=== PATIENT | female | born 1985 | race Caucasian/White ===

== ENCOUNTER 2020-03-10 12:52 | Emergency (ER) | payer OTHER ==
[2020-03-10 13:00] VITALS: TEMP 98; BMI 27.1
--- NOTE | 2020-03-10 13:07 | PDOC ---
History of Present Illness <Emma Swan - Last Filed: 03/10/20 16:38> - History of Present Illness Initial Comments: 03/10/20 13:22 34 F with no PMH BIBA for chest pain. Chest pain was suddenly , happened 1 hour ago, non exertional, no N/V/D. Pain localized around the midsterum , radiating to the right shoulder and right neck area. Pain is constant and dull . Chest pain is not worse with positional. Pain is not ple She endorses SOB, frontal headache, dizziness, denies fever, chills, N/V/D, hx of blood clot, unilat leg swelling. She has an IUD. PMHX: as in HPI PSHX: none Meds: none Allergies: none Tob: denies Etoh: denies Rec drugs: denies PCP: none Rating Examiner: benigno BUCHANAN GENERAL/CONSTITUTIONAL: No fever or chills. No weakness. HEAD, EYES, EARS, NOSE AND THROAT: No change in vision. No ear pain or discharge. No sore throat. CARDIOVASCULAR: + chest pain and shortness of breath RESPIRATORY: No cough, wheezing, or hemoptysis. GASTROINTESTINAL: No nausea, vomiting, diarrhea or constipation. GENITOURINARY: No dysuria, frequency, or change in urination. MUSCULOSKELETAL: +muscle pain. +neck ,back pain. SKIN: No rash NEUROLOGIC: +headache, +lightheadness, no loss of consciousness, or change in strength/sensation. ENDOCRINE: No increased thirst. No abnormal weight change HEMATOLOGIC/LYMPHATIC: No anemia, easy bleeding, or history of blood clots. ALLERGIC/IMMUNOLOGIC: No hives or skin allergy. PE GENERAL: Awake, alert, and fully oriented, in no acute distress HEAD: No signs of trauma, normocephalic, atraumatic EYES: PERRLA, EOMI, sclera anicteric, conjunctiva clear ENT: Auricles normal inspection, hearing grossly normal, nares patent, oropharynx clear without exudates. Moist mucosa NECK: Normal ROM, supple, no lymphadenopathy, no JVD, or masses LUNGS: No distress, speaks full sentences, clear to auscultation bilaterally HEART: Regular rate and rhythm, normal S1 and S2, no murmurs, rubs or gallops, peripheral pulses normal and equal bilaterally. +reproducible chest pain upon palpation. ABDOMEN: Soft, nontender, normoactive bowel sounds. No guarding, no rebound. N o masses EXTREMITIES : Normal inspection, Normal range of motion, no edema. No clubbing or cyanosis. NEUROLOGICAL: Cranial nerves II through XII grossly intact. Normal speech, normal gait, no focal sensorimotor deficits SKIN: Warm, Dry, normal turgor, no rashes or lesions noted 03/10/20 13:55 <Abner Mejia - Last Filed: 03/10/20 23:55> - General Chief Complaint: Chest Pain Stated Complaint: CHEST PAIN, FEVER, S.O.B Time Seen by Provider: 03/10/20 13:01 Past History <Emma Swan - Last Filed: 03/10/20 16:38> - Medical History COPD: No - Psycho-Social/Smoking History Smoking History: Never smoked Information on smoking cessation initiated: No - Substance Abuse Hx (Audit-C & DAST Scrn) How often the patient has a drink containing alcohol: Never Score: In Men: 4 or > Positive; In Women: 3 or > Positive: 0 Screen Result (Pos requires Nsg. Audit-10AR): Negative In the last yr the pt used illegal drug/Rx for NonMed reason: No Score: Yes response is considered Positive: 0 Screen Result (Positive result requires Nsg. DAST-10): Negative <Abner Mejia - Last Filed: 03/10/20 23:55> - Medical History Allergies/Adverse Reactions: Allergies Allergy/AdvReac Type Severity Reaction Status Date / Time No Known Allergies Allergy Verified 03/10/20 13:00 Home Medications: Ambulatory Orders NK [No Known Home Medication] 03/10/20 *Physical Exam - Vital Signs Last Vital Signs Temp Pulse Resp BP Pulse Ox 98.0 F 67 16 109/62 98 03/10/20 12:56 03/10/20 12:56 03/10/20 12:56 03/10/20 12:56 03/10/20 13:30 <Emma Swan - Last Filed: 03/10/20 16:38> - Vital Signs Last Vital Signs Temp Pulse Resp BP Pulse Ox 98.0 F 67 16 109/62 98 03/10/20 12:56 03/10/20 12:56 03/10/20 12:56 03/10/20 12:56 03/10/20 12:56 <Abner Mejia - Last Filed: 03/10/20 23:55> ED Treatment Course - LABORATORY CBC & Chemistry Diagram: 03/10/20 13:10 03/10/20 13:10 - ADDITIONAL ORDERS Additional order review: Laboratory Results 03/10/20 03/10/20 03/10/20 15:05 13:10 13:10 D-Dimer Cancelled Sodium 140 Potassium 4.5 Chloride 110 H Carbon Dioxide 27 Anion Gap 3 L BUN 8.3 Creatinine 0.8 Est GFR (CKD-EPI)AfAm 113.06 Est GFR (CKD-EPI)NonAf 97.55 Random Glucose 90 Calcium 9.5 Total Bilirubin 0.6 AST 12 L ALT 19 Alkaline Phosphatase 54 Creatine Kinase 81 Troponin I < 0.02 Total Protein 7.9 Albumin 4.2 Urine HCG, Qual Negative 03/10/20 13:10 RBC 4.40 MCV 93.7 MCHC 33.6 RDW 13.2 MPV 11.1 - RADIOLOGY Radiology Studies Ordered: Category Date Time Status CHEST X-RAY PORTABLE* [RAD] Stat Radiology 03/10/20 12:59 Completed - Medications Given in the ED: ED Medications Discontinued Medications Generic Name Dose Route Start Last Admin Trade Name Freq PRN Reason Stop Dose Admin Acetaminophen 975 mg 03/10/20 13:14 03/10/20 13:30 Tylenol - PO 03/10/20 13:15 975 mg ONCE ONE Administration Sodium Chloride 1,000 mls @ 1,000 mls/hr 03/10/20 13:14 03/10/20 13:30 Normal Saline - IV 03/10/20 14:13 1,000 mls/hr ASDIR STA Administration <Emma Swan - Last Filed: 03/10/20 16:38> - LABORATORY CBC & Chemistry Diagram: 03/10/20 13:10 03/10/20 13:10 <Abner Mejia - Last Filed: 03/10/20 23:55> Medical Decision Making - Medical Decision Making 03/10/20 13:06 EKG: vent rate 66, qTc 429s, normal sinus rthym, no ST elevation. 03/10/20 13:40 ddx: musculoskeletal pain, gall bladder pain, low suspicion for ACS, PE. lab: CBC, CMP, troponin. Med: tylenol, fluid. 03/10/20 14:18 Lab came back essentially normal. She feels better after medication. Given food and drinks. 03/10/20 16:58 Patient was reassesed multiple times, and felt improved with the meds. Waiting for the repeated trop. Most likely will go home. Repeated trop negative. D/c home. 03/10/20 23:55 <Abner Mejia - Last Filed: 03/10/20 23:55> Discharge - Discharge Information Problems reviewed: Yes - Admission No <Emma Swan - Last Filed: 03/10/20 16:38> - Discharge Information Problems reviewed: Yes <Abner Mejia - Last Filed: 03/10/20 23:55> - Discharge Information Clinical Impression/Diagnosis: Chest pain Condition: Improved Disposition: HOME - Patient Discharge Instructions Patient Printed Discharge Instructions: DI for Atypical Chest Pain Additional Instructions: Follow up with your primary care doctor within 3 days regarding your ER visit. Your care is not complete until you follow up. Take tylenol 1000 mg every 8 hours as needed for chest pain. Return to the ER for increasing pain, chest pain, shortness of breath, vomiting, lightheadedness, fever>103F, or any other new, worsening or concerning symptoms. - Post Discharge Activity Work/Back to School Note: Back to Work
[2020-03-10] MEDS ORDERED: SODIUM CHLORIDE 1,000 ML IV STA (13:14)
[2020-03-10] MEDS ORDERED: ACETAMINOPHEN 325 MG TABLET (FP) PO ONE (13:14)
[2020-03-10] MEDS ORDERED: ACETAMINOPHEN 325 MG TABLET (FP) ONE (13:25)
[2020-03-10 13:45] LABS: HEMATOCRIT 41.2 % (32.4-45.2); HEMOGLOBIN 13.8 GM/dL (10.7-15.3); MCH 31.5 pg (25.7-33.7); MCHC 33.6 g/dl (32.0-36.0); MEAN CELL VOLUME 93.7 fl (80-96); MEAN PLT VOLUME 11.1 fl (7.5-11.1); PLATELET COUNT 250 K/MM3 (134-434); RDW 13.2 % (11.6-15.6); WHITE BLOOD COUNT 7.3 K/mm3 (4.0-10.0)
--- NOTE | 2020-03-10 13:50 | PDOC ---
Documentation entered by Kimo Jean Baptiste SCRIBE, acting as scribe for Yordan Rosales MD. Yordan Rosales MD: This documentation has been prepared by the [employer] Aaron, SCRIBE, under my direction and personally reviewed by me in its entirety. I confirm that the documentation accurately reflects all work, treatment, procedures, and medical decision making performed by me. Attending Attestation - Resident Resident Name: Abner Mejia - ED Attending Attestation I have performed the following: I have examined & evaluated the patient, The case was reviewed & discussed with the resident, I agree w/resident's findings & plan, Exceptions are as noted - HPI HPI: 03/10/20 13:32 The patient is a 34 year old female with no significant PMH who presents to the emergency department with sudden onset nonexertional midsternal chest pain accompanied by SOB for one hour. Patient was BIBA, EMS reported that patient had a fever on olive picker, temp was normal in ED. Patient describes the pain as constant and reproducible. Patient denies recent travel, any sick contact, or bilateral leg swelling. Patient also endorses headache. The patient denies nausea, vomiting, diaphoresis, or fever. Patient denies any other symptoms. Allergies: NKDA Social Hx: IUD ring PCP: none - Physicial Exam PE: 03/10/20 14:03 See resident exam - Medical Decision Making 03/10/20 14:03 34 F with fevers and chest pain. Afebrile in ED. EKG nonischemic. Will r/o ACS. PERC score 0, making PE unlikely. Will evaluate for infectious process. Possible PNA vs URI. Consider COVID. - Labs - CXR CXR clear Labs wnl, trop negative x 2 Pt is well appearing, with normal vitals. Clinically stable for DC at this time. I discussed the physical exam findings, ancillary test results and final diagnoses with the patient. I answered all of the patient's questions. The patient was satisfied with the care received and felt comfortable with the discharge plan and treatment plan. The patient agrees to follow up with the primary care physician within 24-72 hours. Discharge - Discharge Information Problems reviewed: Yes Clinical Impression/Diagnosis: Chest pain Condition: Improved Disposition: HOME - Follow up/Referral - Patient Discharge Instructions Patient Printed Discharge Instructions: DI for Atypical Chest Pain Additional Instructions: Follow up with your primary care doctor within 3 days regarding your ER visit. Your care is not complete until you follow up. Take tylenol 1000 mg every 8 hours as needed for chest pain. Return to the ER for increasing pain, chest pain, shortness of breath, vomiting, lightheadedness, fever>103F, or any other new, worsening or concerning symptoms. - Post Discharge Activity Work/Back to School Note: Back to Work
[2020-03-10 14:04] LABS: ALBUMIN 4.2 g/dl (3.4-5.0); ANION GAP 3 MMOL/L (8-16); BILIRUBIN,TOTAL 0.6 mg/dL (0.2-1); BLOOD UREA NITROGEN 8.3 mg/dL (7-18); CALCIUM 9.5 mg/dL (8.5-10.1); CHLORIDE 110 mmol/L (98-107); CO2 27 mmol/L (21-32); CREATININE 0.8 mg/dL (0.55-1.3); GLUCOSE,RANDOM 90 mg/dL (74-106); POTASSIUM 4.5 mmol/L (3.5-5.1); SGOT/AST 12 U/L (15-37); SGPT/ALT 19 U/L (13-61); SODIUM 140 mmol/L (136-145); TOT PROT 7.9 g/dl (6.4-8.2)
[2020-03-10 14:05] LABS: ALK PHOS 54 U/L (45-117)
[2020-03-10 17:15] VITALS: BP 101/57; PULSE 60
--- NOTE | 2020-03-12 10:09 | EKG ---
Test Reason : Blood Pressure : / mmHG Vent. Rate : 066 BPM Atrial Rate : 066 BPM P-R Int : 156 ms QRS Dur : 084 ms QT Int : 410 ms P-R-T Axes : 049 023 039 degrees QTc Int : 429 ms NORMAL SINUS RHYTHM WITH SINUS ARRHYTHMIA NORMAL ECG NO PREVIOUS ECGS AVAILABLE Confirmed by Fabrizio Patrick ([id number]) on 03/12/2020 10:09:08 AM Referred By: Confirmed By:Fabrizio Patrick
== END 2020-03-10 17:15 | disposition home or self-care (01) ==
LOC: JER 12:52
PROC: 3E0337Z Introduction of Electrolytic and Water Balance Substance into Peripheral Vein, Percutaneous Approach (ICD-10-PCS; principal; 2020-03-10)
DX: R07.9 Chest pain, unspecified (principal)
CPT/HCPCS: 36415; 71045-TC-FY; 80053; 82550; 84484; 84703; 85027; 93005; 93010; 99285-25